=== PATIENT | female | born 1960 | race Hispanic/Latino ===

== ENCOUNTER 2017-09-12 04:02 | Emergency (ER) | payer OTHER ==
[~2017-09-12] VITALS: Ht 152.4 cm; Wt 62.1 kg
--- NOTE | 2017-09-12 04:20 | ED GI/GU/ABDOMINAL COMPLAINT ---
History of Present Illness General Chief Complaint: Abdominal Pain/Flank Pain Stated Complaint: LT SIDED FLANK/ABD PAIN Source: patient Exam Limitations: no limitations Vital Signs & Intake/Output Vital Signs & Intake/Output Vital Signs Date Time Temp Pulse Resp B/P B/P Pulse O2 O2 Flow FiO2 Mean Ox Delivery Rate 09/12 412 100 Room Air 09/12 409 96.6 84 18 117/83 100 Room Air Allergies Coded Allergies: No Known Allergies (09/12/17) Reconcile Medications Cyclobenzaprine HCl 10 MG TABLET 1 TAB PO 4 TIMES/DAY PRN MUSCLE SPASM Ibuprofen 800 MG TABLET 1 TAB PO TID PRN pain Triage Note: PT FROM HOME C/O LEFT FLANK PAIN RADIATING TO ABD 01/09 X1 DAY. PT STATES SHE AWOKE YESTERDAY WITH LEFT FLANK PAIN THAT IS THROBBING, PT THOUGHT IT WAS GAS PAINS, BUT THE PAIN HAS BECOME PROGRESSIVELY WORSE. PTS VSS. AFEBRILE. Triage Nurses Notes Reviewed? yes ? n Is pt currently ? No Onset: Gradual Duration: day(s): Timing: recent history Location: left flank Radiation: LLQ Activities at Onset: none Prior Abdominal Problems: none Associated Symptoms: abdominal pain, nausea/vomiting HPI: 56 yo woman in prior good health presents with left flank pain radiating to left lower quadrant, associated with mild nausea, that began yesterday morning, and worsened overnight. She has no fever, chills, dysuria, diarrhea. She is otherwise well. Past History Travel History Traveled to [place] past 21 day No Medical History Any Pertinent Medical History? see below for history Neurological: migraine EENT: NONE Cardiovascular: NONE Respiratory: NONE Gastrointestinal: NONE Hepatic: NONE Renal: NONE Musculoskeletal: NONE Psychiatric: NONE Endocrine: NONE Surgical History Surgical History: none Psychosocial History What is your primary language Armenian Tobacco Use: Never used Family History Hx Contributory? No Review of Systems Review of Systems Constitutional: Reports: no symptoms. EENTM: Reports: no symptoms. Respiratory: Reports: no symptoms. Cardiovascular: Reports: no symptoms. GI: Reports: no symptoms. Genitourinary: Reports: no symptoms. Musculoskeletal: Reports: no symptoms. Skin: Reports: no symptoms. Neurological/Psychological: Reports: no symptoms. Hematologic/Endocrine: Reports: no symptoms. Immunologic/Allergic: Reports: no symptoms. All Other Systems: Reviewed and Negative Physical Exam Physical Exam General Appearance: well developed/nourished, mild distress Head: atraumatic, normal appearance Eyes: Bilateral: normal appearance. Ears, Nose, Throat, Mouth: hearing grossly normal Neck: normal inspection, supple, full range of motion Respiratory: normal breath sounds, chest non-tender, no respiratory distress, quiet respiration, lungs clear Cardiovascular: regular rate/rhythm Gastrointestinal: normal bowel sounds, soft, non-tender, no organomegaly Back: normal inspection, normal range of motion Extremities: normal range of motion Neurologic/Psych: no motor/sensory deficits, awake, alert, oriented x 3 Skin: intact, normal color, warm/dry Core Measures ACS in differential dx? No Sepsis Present: No Sepsis Focused Exam Completed? No Progress Differential Diagnosis: renal colic vs pyelo vs other. Plan of Care: Orders Procedure Date/time Status URINALYSIS 09/12 418 Complete LIPASE 09/12 418 Complete HEPATIC FUNCTION PANEL 09/12 418 Complete CBC WITHOUT DIFFERENTIAL 09/12 418 Complete BASIC METABOLIC PANEL 09/12 418 Complete AMYLASE 09/12 418 Complete Laboratory Tests 09/12/17 0436: Urinalysis LIGHT H, Urine Color YEL, Urine Clarity CLDY H, Urine pH 7.5, Ur Specific [place] 1.015, Urine Protein NEG, Urine Ketones NEG, Urine Nitrite NEG, Urine Bilirubin NEG, Urine Urobilinogen 1.0, Ur Leukocyte Esterase NEG, Ur Microscopic SEDIMENT EXAMINED, Urine RBC 1-3, Urine WBC 3-5 H, Ur Epithelial Cells MANY H, Urine Bacteria MOD H, Urine Mucus FEW, Urine Hemoglobin NEG, Urine Glucose NEG 09/12/17 0430: Anion Gap 10, Estimated GFR > 60, BUN/Creatinine Ratio 22.9, Glucose 124 H, Calcium 9.4, Total Bilirubin 0.4, Direct Bilirubin 0.2, AST 24, ALT 36, Alkaline Phosphatase 98, Total Protein 7.4, Albumin 4.1, Amylase 51, Lipase 120, CBC w Diff NO MAN DIFF REQ, RBC 4.22, MCV 86.2, MCH 28.8, MCHC 33.3, RDW 13.0, MPV 9.7 , Gran % 53.9, Lymphocytes % 37.1, Monocytes % 6.7, Eosinophils % 2.2, Basophils % 0.1, Absolute Granulocytes 4.2, Absolute Lymphocytes 2.9, Absolute Monocytes 0.5, Absolute Eosinophils 0.2, Absolute Basophils 0 Diagnostic Imaging: Viewed by Me: CT Scan. Discussed w/RAD: CT Scan. Radiology Impression: no acute abnormality, PATIENT: KATHRYN MCCLELLAN PRESENT AGE: 56 PATIENT ACCOUNT NO: [id number] : 60 LOCATION: [facility] ORDERING PHYSICIAN: Jaylen Farrell MD SERVICE DATE: EXAM TYPE: CAT - CT ABD & PELVIS W/O IV CONTRAS EXAMINATION: CT ABDOMEN AND PELVIS WITHOUT CONTRAST CLINICAL INFORMATION: Left flank pain COMPARISON: None TECHNIQUE: Multidetector volumetric imaging was performed from the superior aspect of the liver through the pubic symphysis. Sagittal and coronal reformatted images were obtained on the technologist's workstation. DLP: 270.04 mGy-cm FINDINGS: LUNG BASES: The visualized lung bases are unremarkable. LIVER, GALLBLADDER, AND BILIARY TREE: The demonstrates hypoattenuation consistent with steatosis. No focal hepatic lesion or biliary ductal dilatation is present. Patient is status post cholecystectomy. PANCREAS: Unremarkable. SPLEEN: Unremarkable. ADRENAL GLANDS: Unremarkable. KIDNEYS AND URETERS: Bilateral extrarenal pelvises are noted, without significant dilation or ureteral calculus. The ureters are nondilated. The kidneys are otherwise normal in appearance. BLADDER: Nearly empty and not well evaluated. GASTROINTESTINAL TRACT: The small and large bowel are unremarkable. The appendix is unremarkable. No free fluid or free air is seen. ABDOMINAL WALL: No significant hernia is appreciated. LYMPH NODES: Normal. VASCULAR: Unremarkable. PELVIC VISCERA: Patient is status post hysterectomy. OSSEOUS STRUCTURES: Unremarkable. IMPRESSION: 1. No acute findings identified in the abdomen/pelvis. 2. Hepatic steatosis. DICTATED BY: James Murray MD DATE/TIME DICTATED:09/12/17522 HEEL SEAT FITTER:SINCERE DATE/TIME TRANSCRIBED:09/12/17522 CONFIDENTIAL, DO NOT COPY WITHOUT APPROPRIATE AUTHORIZATION. <Electronically signed in Other Vendor System> SIGNED BY: James Murray MD 09/12/1732 Initial ED EKG: none Departure Departure Disposition: HOME OR SELF CARE Condition: Stable Clinical Impression Primary Impression: Flank pain Secondary Impressions: Abdominal pain, Back pain Departure Forms: Customer Survey General Discharge Information Prescriptions: Current Visit Scripts Ibuprofen 1 TAB PO TID PRN pain #30 TAB Cyclobenzaprine HCl 1 TAB PO 4 TIMES/DAY PRN MUSCLE SPASM #30 TAB Ref 1 Comments pt feels well at discharge and would like to go home.
[2017-09-12 04:41] LABS: ABSOLUTE BASOPHIL COUNT 0 /CUMM (0.0-0.2); ABSOLUTE EOSINOPHIL COUNT 0.2 /CUMM (0.0-0.7); ABSOLUTE GRANULOCYTE CT 4.2 /CUMM (1.4-6.5); ABSOLUTE LYMPH COUNT 2.9 /CUMM (1.2-3.4); ABSOLUTE MONOCYTE COUNT 0.5 /CUMM (0.10-0.60); BASOPHIL % 0.1 % (0.0-2.0); EOSINOPHIL % 2.2 % (0-5); GRANULOCYTE % 53.9 % (42.2-75.2); HEMATOCRIT 36.4 % (37-47); MEAN CORPUSCULAR HGB 28.8 PG (27.0-31.0); MEAN CORPUSCULAR HGB CONC 33.3 G/DL (33.0-37.0); MEAN CORPUSCULAR VOLUME 86.2 FL (81.0-99.0); MEAN PLATELET VOLUME 9.7 FL (7.4-10.4); PLATELET COUNT 319 /CUMM (130-400); RED BLOOD CELL CT 4.22 /CUMM (4.20-5.40); WHITE BLOOD CELL COUNT 7.9 /CUMM (4.8-10.8)
--- NOTE | 2017-09-12 05:32 | CT SCAN REPORT ---
EXAMINATION: CT ABDOMEN AND PELVIS WITHOUT CONTRAST CLINICAL INFORMATION: Left flank pain COMPARISON: None TECHNIQUE: Multidetector volumetric imaging was performed from the superior aspect of the liver through the pubic symphysis. Sagittal and coronal reformatted images were obtained on the technologist's workstation. DLP: 270.04 mGy-cm FINDINGS: LUNG BASES: The visualized lung bases are unremarkable. LIVER, GALLBLADDER, AND BILIARY TREE: The demonstrates hypoattenuation consistent with steatosis. No focal hepatic lesion or biliary ductal dilatation is present. Patient is status post cholecystectomy. PANCREAS: Unremarkable. SPLEEN: Unremarkable. ADRENAL GLANDS: Unremarkable. KIDNEYS AND URETERS: Bilateral extrarenal pelvises are noted, without significant dilation or ureteral calculus. The ureters are nondilated. The kidneys are otherwise normal in appearance. BLADDER: Nearly empty and not well evaluated. GASTROINTESTINAL TRACT: The small and large bowel are unremarkable. The appendix is unremarkable. No free fluid or free air is seen. ABDOMINAL WALL: No significant hernia is appreciated. LYMPH NODES: Normal. VASCULAR: Unremarkable. PELVIC VISCERA: Patient is status post hysterectomy. OSSEOUS STRUCTURES: Unremarkable. IMPRESSION: 1. No acute findings identified in the abdomen/pelvis. 2. Hepatic steatosis.
[2017-09-12] MEDS ORDERED: IBUPROFEN800 M1 PO (05:46)
[2017-09-12] MEDS ORDERED: CYCLOBENZAPRINE10 M1 PO (05:46)
[2017-09-12 05:50] VITALS: BP 122/76
== END 2017-09-12 05:51 ==
LOC: ERH 04:02
PROVIDERS: Pediatrics
DX: R10.32 Left lower quadrant pain (principal)
CPT/HCPCS: 74176; 81001; 96374; 96375; J0131; J1885; J2405